=== PATIENT | male | born 1965 | race Two or more races ===

== ENCOUNTER 2019-06-12 21:41 | Emergency (ER) | payer OTHER ==
[~2019-06-12] VITALS: Ht 167.6 cm; Wt 81.6 kg
[2019-06-13 02:35] VITALS: BP 135/82
== END 2019-06-13 02:17 | disposition home or self-care (01) ==
LOC: EEVIPCON 21:44 → ER 21:44
DX: S02.2XXA Fracture of nasal bones, initial encounter for closed fracture (principal); S02.31XA Fracture of orbital floor, right side, initial encounter for closed fracture; E11.9 Type 2 diabetes mellitus without complications; I10 Essential (primary) hypertension; Y04.2XXA Assault by strike against or bumped into by another person, initial encounter; Y93.89 Activity, other specified; Y92.89 Other specified places as the place of occurrence of the external cause; Y99.8 Other external cause status
CPT/HCPCS: 70450; 70486; 72125